=== PATIENT | male | born 1965 | race Caucasian/White ===

== ENCOUNTER → 2024-04-26 07:01 | Outpatient (REF) | payer BC, SELFPAY | LOC: MRI 3T 07:01 | PROVIDERS: ATTENDING PHYSICIAN Orthopaedic Surgery Orthopaedic Trauma; FAMILY PHYSICIAN Nurse Practitioner Family | DX: S43.431A Superior glenoid labrum lesion of right shoulder, initial encounter (principal); M25.311 Other instability, right shoulder; M25.511 Pain in right shoulder | CPT/HCPCS: 73221 ==

== ENCOUNTER 2024-05-02 12:07 | Inpatient (IN) | payer BC, SELFPAY ==
[2024-05-02] VITALS (7 sets, daily range): BP systolic 110–139; BP diastolic 67–84; BMI 34.6; BMI 34.0
--- NOTE | 2024-05-02 09:14 | ED.GENMED ---
History of Present Illness
<Dennis Doran PA-C - Last Filed: 05/02/24 11:38>
General
Chief Complaint: Skin Surface Trauma
Source: patient
Time Seen by Provider: 05/02/24 09:04
Travel History
Have you had any contact with someone who has COVID-19?: No
Do you have any symptoms of coronavirus? Fever > 100 degrees, chills, cough, shortness of breath, sore throat, loss of taste or smell, muscle aches, or headache?: No
History of Present Illness
History of Present Illness:
59-year-old male presenting to the emergency department for evaluation of a left-sided facial abscess/cellulitis that began about a week ago, patient stated started as an ingrown hair but progressed to more erythema and pain. He was started on
Bactrim as well as topical Bactroban and states despite these medications symptoms have only gotten worse. Patient works for the cardiology office here and had one of the commission sales associate look at the infection and was recommended to come to the ER for
further evaluation. Patient states he does not believe he has had any fevers but states he just does not feel very well and feels as if he does have fever. Patient also notes a secondary concern of recently rupturing his right sided biceps but
states he is not here to be evaluated for this.
Past History
<Dennis Doran PA-C - Last Filed: 05/02/24 11:38>
Past History
ED Past Medical History: HTN, Hypercholesterolemia, [place] and Other (Diverticulitis, Emphysema)
ED Past Surgical History: Cardiac (Stent) and Other (Hernia repair)
Social History
Tobacco: Smoker
Alcohol: Occasional (5th Vodka)
Drug: None
Personal:
Living: alone
Employment: Employed
Review of Systems
<Dennis Doran PA-C - Last Filed: 05/02/24 11:38>
Review of Systems
All Other Systems: ROS reviewed and negative except as documented in HPI and ROS
Phy Exam
<Dennis Doran PA-C - Last Filed: 05/02/24 11:38>
Physical Exam
Physical Exam:
GENERAL: Alert , in no apparent distress but does appear quite uncomfortable
EYE: conjunctiva clear
Head/face: Normocephalic atraumatic, large left-sided buccal and maxillary cellulitis/abscess. There is a scab at the central portion. Area is significantly indurated without any surrounding fluctuance. Borders are well-demarcated, erythematous,
painful to the touch and warm. Area of erythema measures approximately 5 cm in length and 3 cm in width
NECK: Supple,
ENT: mmm.
LUNGS: no acute respiratory distress
NEUROLOGICAL: Alert and oriented
SKIN: Warm and dry, skin intact.
MUSCULOSKELETAL: well perfused.
PSYCH: Normal and appropriate interaction.
Scores
<Dennis Doran PA-C - Last Filed: 05/02/24 11:38>
Heart Failure Risk
Heart Failure Risk Score: Not Applicable
Heart Score for Chest Pain Patients
STEMI patient?: Not applicable
Withdrawal Assessment of Alcohol
Withdrawal Assessment Completed?: Not applicable
Course
<Dennis Doran PA-C - Last Filed: 05/02/24 11:38>
Orders/Labs/Results
Orders:
Orders
05/02/24 09:11
CT Facial Bones W/ Iv Contrast Urgent
Comment:
Reason For Exam: large left maxillary cellulitis/abscess
Ketorolac [Toradol] 30 mg IV NOW STA
Piperacillin/Tazo 3.375 Gram [Zosyn] 3.375 gram in 50 ml IV NOW
05/02/24 09:18
Basic Metabolic Panel Urgent
Complete Blood Count/With Diff Urgent
05/02/24 09:41
Vancomycin [Vancocin] 2,000 mg 0.9% Sodium Chloride 500 ml [Nss] 500 ml IV NOW
05/02/24 11:27
HYDROmorphone [Dilaudid] 1 mg IV NOW STA
05/02/24 11:30
ENT CONSULT Routine
Consulting Provider: Lam Alamo
Was physician already notified: Yes
05/02/24 11:31
Admit/Transfer Patient As Directed
Co-Sign Provider:
Level of Care: Inpatient admission
Assign to:: Medical/Surgical
Physician / Group: bimal vu
Diagnosis: left cheek cellulitis
Reason for Hospitalization: left cheek cellulitis
Expected length of stay greater than two midnights?: Yes
ELOS- Estimated Length of Stay in days: 2
I certify the patient meets the requirements for IP care: Yes
05/02/24 11:33
Code Status As Directed
Resuscitation Status: Full Code
05/02/24 11:45
Blood Culture Q30M
BRENDA Source: Blood/Venous
Specimen Description:
05/02/24 12:15
Blood Culture Q30M
BRENDA Source: Blood/Venous
Specimen Description:
Abnormal Lab Results
05/02/24
09:18
WBC 11.9 H 10^3/uL
(4.8-10.8)
RBC 4.54 L 10^6/uL
(4.70-6.10)
Plt Count 848 H 10^3/uL
(130-400)
Abs Immat Gran (auto) 0.1 H 10^3/uL
(0-0.05)
Absolute Neuts (auto) 9.2 H 10^3/uL
(1.4-6.5)
Absolute Monos (auto) 1.1 H 10^3/uL
(0.1-0.6)
Neutrophils % 77.0 H %
(42.2-75.2)
Lymphocytes % 10.1 L %
(20.5-51.1)
Monocytes % 9.4 H %
(1.7-9.3)
05/02/24 09:18
05/02/24 09:18
Vital Signs
Initial and Last Documented VS:
Initial Vital Signs
Temp Pulse Resp BP Pulse Ox
98.8 F 91 18 139/84 97
05/02/24 08:33 05/02/24 08:33 05/02/24 08:33 05/02/24 08:33 05/02/24 08:33
Last Documented Vital Signs
Temp Pulse Resp BP Pulse Ox
98.8 F 79 20 118/77 98
05/02/24 08:33 05/02/24 10:25 05/02/24 10:25 05/02/24 10:25 05/02/24 10:25
<Mariusz uCtler, - Last Filed: 05/02/24 09:45>
Orders/Labs/Results
Orders:
Orders
05/02/24 09:11
CT Facial Bones W/ Iv Contrast Urgent
Comment:
Reason For Exam: large left maxillary cellulitis/abscess
Ketorolac [Toradol] 30 mg IV NOW STA
Piperacillin/Tazo 3.375 Gram [Zosyn] 3.375 gram in 50 ml IV NOW
05/02/24 09:18
Basic Metabolic Panel Urgent
Complete Blood Count/With Diff Urgent
05/02/24 09:41
Vancomycin [Vancocin] 2,000 mg 0.9% Sodium Chloride 500 ml [Nss] 500 ml IV NOW
05/02/24 11:27
HYDROmorphone [Dilaudid] 1 mg IV NOW STA
05/02/24 11:30
ENT CONSULT Routine
Consulting Provider: Lam Alamo
Was physician already notified: Yes
05/02/24 11:31
Admit/Transfer Patient As Directed
Co-Sign Provider:
Level of Care: Inpatient admission
Assign to:: Medical/Surgical
Physician / Group: bimal vu
Diagnosis: left cheek cellulitis
Reason for Hospitalization: left cheek cellulitis
Expected length of stay greater than two midnights?: Yes
ELOS- Estimated Length of Stay in days: 2
I certify the patient meets the requirements for IP care: Yes
05/02/24 11:33
Code Status As Directed
Resuscitation Status: Full Code
05/02/24 11:45
Blood Culture Q30M
BRENDA Source: Blood/Venous
Specimen Description:
05/02/24 12:15
Blood Culture Q30M
BRENDA Source: Blood/Venous
Specimen Description:
Abnormal Lab Results
05/02/24
09:18
WBC 11.9 H 10^3/uL
(4.8-10.8)
RBC 4.54 L 10^6/uL
(4.70-6.10)
Plt Count 848 H 10^3/uL
(130-400)
Abs Immat Gran (auto) 0.1 H 10^3/uL
(0-0.05)
Absolute Neuts (auto) 9.2 H 10^3/uL
(1.4-6.5)
Absolute Monos (auto) 1.1 H 10^3/uL
(0.1-0.6)
Neutrophils % 77.0 H %
(42.2-75.2)
Lymphocytes % 10.1 L %
(20.5-51.1)
Monocytes % 9.4 H %
(1.7-9.3)
05/02/24 09:18
05/02/24 09:18
Vital Signs
Initial and Last Documented VS:
Initial Vital Signs
Temp Pulse Resp BP Pulse Ox
98.8 F 91 18 139/84 97
05/02/24 08:33 05/02/24 08:33 05/02/24 08:33 05/02/24 08:33 05/02/24 08:33
Last Documented Vital Signs
Temp Pulse Resp BP Pulse Ox
98.8 F 79 20 118/77 98
05/02/24 08:33 05/02/24 10:25 05/02/24 10:25 05/02/24 10:25 05/02/24 10:25
<Dennis Doran PA-C - Last Filed: 05/02/24 11:38>
MDM/Problems Addressed
Differential Diagnosis Includes:
Abscess, cellulitis, erysipelas, impetigo
MDM/Problems Addressed:
59-year-old male presenting emergency department for evaluation of left-sided facial infection. Has been on Bactrim for the last 3 days without any relief. Erythema started to extend more towards the periorbital space over the last 24 hours.
Patient with minimal relief of pain with Advil/Tylenol. Large area of erythema and induration without any fluctuance. CT ordered. Toradol ordered pain. Vancomycin and Zosyn ordered for antibiotic coverage. Anticipate admission.
<Dennis Doran PA-C - Last Filed: 05/02/24 11:38>
*Radiology
Radiology exam reviewed: radiology read reviewed
*Pulse Oximetry
Patient hypoxic: no
*Critical Care Note
Total Time (30-74mins, 75-104mins- exclusive of procedures): Not Applicable
Data Reviewed
Review of Other/Old Records Reveals: Labs and Records
Source: patient
<Dennis Doran PA-C - Last Filed: 05/02/24 11:38>
Patient Management
Discussion with other providers: Hospitalist
Escalation/DeEscalation of care consider admission/obs:
Patient CT shows a left-sided facial and periorbital cellulitis but no abscess formation noted. Hospitalist team was notified and accepts patient for continued evaluation and treatment. They can consult ENT as needed.
ED Attending Note
<Dennis Doran PA-C - Last Filed: 05/02/24 11:38>
-
Portions of this chart may have been created with voice recognition software.� Occasional wrong word or��sound alike� substitutions may have occurred due to the inherent limitations of voice recognition software.
<Mariusz Cutler DO - Last Filed: 05/02/24 09:45>
ED Attending Note
Patient seen and examined by attending physician: Yes
I performed the substantive portion of visit, reviewed & personally made and approve the management plan that is documented in note by myself or SIN.: Yes
ED Attending Note:
Seen with PA examined independently. Agree with assessment and plan patient with worsening left facial cellulitis despite Bactrim, to be using ibuprofen, will check labs, CT scan to look for any abscess or progression, patient may require
admission to the hospital and/or specialty consultation
Discharge Plan
Departure
Patient Disposition: Admit
Date of Disposition: 05/02/24
Time of Disposition: 10:38
Presentation/result/management discussed w/ accepting MD/DO: Hospitalist
Discharge Problem:
Cellulitis and abscess of face
Prescriptions:
No Action
levothyroxine 175 mcg Tablet
175 mcg PO DAILY
sulfamethoxazole-trimethoprim [Bactrim DS] 800-160 mg Tablet
1 tab PO BID
mupirocin 2 % Ointment
1 applic TOPICAL BID
cholecalciferol (vitamin D3) 10 mcg (400 unit) Tablet
10 mcg PO DAILY
creatine monohydrate 5,000 mg Powder In Packet
1 mg PO DAILY
mecobalamin (vitamin B12) [B12 Active] 1,000 mcg Tablet,Chewable
1,000 mcg PO DAILY
Referrals:
Talya Lopez CRNP [Family Provider] -
Interventions
Interventions:
*Risk Screen - Suicide Last Done: 05/02/24 08:33
*General Assessment Last Done: 05/02/24 08:33
*Neglect/Abuse Screening Last Done: 05/02/24 08:33
*ED COVID-19 Vaccine History Last Done: 05/02/24 08:33
ED-Skin Assessment Last Done: 05/02/24 09:30
Discharge Date and Time
Print Language: BANGLADESHI
[2024-05-02 09:35] LABS: % Basophils 0.8 % (0-2); % Eosinophils 2.3 % (0-6); % Immature Granulocytes 0.4 % (0-0.5); % Lymphocytes 10.1 % (20.5-51.1); % Monocytes 9.4 % (1.7-9.3); Absolute Basophils 0.1 10^3/uL (0-0.2); Absolute Eosinophils 0.3 10^3/uL (0-0.7); Absolute Immature Granulocytes 0.1 10^3/uL (0-0.05); Absolute Lymphocytes 1.2 10^3/uL (1.2-3.4); Absolute Monocytes 1.1 10^3/uL (0.1-0.6); Absolute Neutrophils 9.2 10^3/uL (1.4-6.5); Hemoglobin 13.7 g/dL (13.0-18.0); Mean Corp Hgb Conc. 35.1 g/dL (33.0-37.0); Mean Corpuscular Hgb 30.2 pg (27.0-31.0); Mean Corpuscular Volume 85.9 fL (80.0-94.0); Mean Platelet Volume 8.3 fL (7.4-10.4); Nucleated Red Blood Cells % 0 % (-); Platelet Count 848 10^3/uL (130-400); Red Blood Cell Count 4.54 10^6/uL (4.70-6.10); Red Cell Dist. Width 14.5 % (11.5-14.5); White Blood Cell Count 11.9 10^3/uL (4.8-10.8)
[2024-05-02] MEDS: TORADOL 30 MG IV (09:46)
[2024-05-02] MEDS: ZOSYN 50 IV (09:46)
[2024-05-02 09:48] LABS: Blood Urea Nitrogen 16 mg/dl (9-20); Carbon Dioxide 29 mmol/L (22-30); Chloride 104 mmol/L (98-107); Estimated Creatinine Clearance 84 ml/min; Glucose 96 mg/dl (70-99); Potassium 4.8 mmol/L (3.5-5.1); Sodium 139 mmol/L (135-145); eGFR > 60.00
[2024-05-02] MEDS: VANCOCIN 540 MG IV (10:19)
--- NOTE | 2024-05-02 11:15 | HPS.HSE ---
Family Physician
-
Family Physician: Talya Lopez
Chief Complaint
-
Worsening pain, swelling, redness of left cheek
History of Present Illness
59-year-old male with a past medical history of hypertension, hyperlipidemia, myocardial infarction status post stent, diverticulitis, and emphysema presents with worsening pain, erythema, and edema of his left cheek, now extending towards his ear
and jaw. Patient states that he had an ingrown hair on his left cheek, started noticing the redness, swelling, and pain for 5 days. He saw his PCP 3 days ago, and was prescribed Bactrim and Bactroban. He did take these medications for 3 days, and
had worsening of his symptoms despite taking the medications. He did have fever initially, which resolved. No nausea, no vomiting. Denies dysphagia. No vision changes.
Medical History
Past Medical History
Past Medical History: Reports Other
Additional Past Medical History:
Right biceps tendon tear, HTN, Hypercholesterolemia, [place] and Other (Diverticulitis, Emphysema)
Past Surgical History: Reports Other
Additional Past Surgical History:
Hernia pair
Colon resection
Cardiac stent in 2013
Social History
Tobacco: Smoker
Alcohol: Occasional
Drug: None
Family History
Family History: Not pertinent
Allergies / Home Medications
Allergies reflects when Allergies were last updated in [employer] [facility] [employer].
Home Medications with original date entered in [facility] [employer]
Allergy/Medication List:
Allergies
Allergy/AdvReac Type Severity Reaction Status Date / Time
morphine Allergy Hives Verified 05/02/24 08:36
Home Medications Table - record
�Medication �Instructions �Recorded �Confirmed
cholecalciferol (vitamin D3) 10 10 mcg PO DAILY 05/02/24 05/02/24
mcg (400 unit) tablet
creatine monohydrate 5,000 mg oral 1 mg PO DAILY 05/02/24 05/02/24
powder packet
levothyroxine 175 mcg tablet 175 mcg PO DAILY 05/02/24 05/02/24
mecobalamin (vitamin B12) 1,000 1,000 mcg PO DAILY 05/02/24 05/02/24
mcg chewable tablet (B12 Active)
mupirocin 2 % topical ointment 1 applic topical BID 05/02/24 05/02/24
sulfamethoxazole 800 1 tab PO BID 05/02/24 05/02/24
mg-trimethoprim 160 mg tablet
(Bactrim DS)
Review of Systems
-
A 12 point ROS was completed and negative except as noted: Yes
Physical Exam
Vital Signs
Vital Signs
Temp Pulse Resp BP Pulse Ox
98.8 F 79 20 118/77 98
05/02/24 08:33 05/02/24 10:25 05/02/24 10:25 05/02/24 10:25 05/02/24 10:25
Physical Exam
General: Well Developed, Well Nourished, No Apparent Distress and Obese
HEENT: NormoCephalic, Anicteric, Moist mucous membranes and Other (Punctate lesion on left cheek with surrounding erythema, edema, tenderness, spreading to the left eye and left jaw)
Respiratory: Clear
Cardiac: S1/S2
GI: Soft, Non Tender, Non Distended and Normal Bowel Sounds
Musculoskeletal: No Clubbing, No Cyanosis and No Edema
Neuro: Awake, Alert and Oriented
Psych: Calm
Laboratory Results
-
05/02/24 09:18
05/02/24 09:18
Impression/Plan
-
HPI: 59-year-old male with a past medical history of hypertension, hyperlipidemia, myocardial infarction status post stent, diverticulitis, and emphysema presents with worsening pain, erythema, and edema of his left cheek, now extending towards his
ear and jaw. Patient states that he had an ingrown hair on his left cheek, started noticing the redness, swelling, and pain for 5 days. He saw his PCP 3 days ago, and was prescribed Bactrim and Bactroban. He did take these medications for 3 days,
and had worsening of his symptoms despite taking the medications. He did have fever initially, which resolved. No nausea, no vomiting. Denies dysphagia. No vision changes.
#Left facial cellulitis
CT facial bones shows left facial and periorbital cellulitis, no abscess identified
Appreciate ENT input, status post I&D in the ED 05/02, cultures pending
Suspicious for staph
Continue Unasyn, vancomycin, follow-up on cultures
#Thrombocytosis
Reactive, trend
#Right biceps tendon tear
Follow-up with orthopedic surgery in the office
#Hypothyroidism
Continue Synthroid
#Coronary artery disease status post stent placement 2013
#History of myocardial infarction
He used to be on aspirin, Lipitor, Coreg, lisinopril�unclear why he stopped
Follow-up with his usual extension service advisor in the office
#Cigarette nicotine dependency
Smoking cessation advised
#Obesity due to excess calories
Affects all aspects of care
DVT prophylaxis�subcu Lovenox
Full code
[2024-05-02] MEDS: DILAUDID 1 MG IV (11:40)
--- NOTE | 2024-05-02 14:00 | PTCARENOTE ---
Pt arrived to rm [id number] at this time. Pt med/surg admit, AAOx3, +1 edema of left cheek with pain- see shift assessment for further detail. Oriented pt to rm, plan of care, reporting concerns, medications, etc- pt verbalized understanding. Call patrick
within reach, will monitor.
--- NOTE | 2024-05-02 14:12 | W.PN.ENT ---
Today's Communication
-
patint seen at bedside
Impression / Plan
-
left facial abscess/celulitis
typical of Staph
incision and drainage performed
cultured
will follow/consult dictated
Subjective Data
-
patient seen for left facial cellulitis/abcsess
began 1 week ago
Objective Data
-
Vital Signs
Temp Pulse Resp BP Pulse Ox
97.9 F 69 16 129/76 96
05/02/24 13:52 05/02/24 13:52 05/02/24 13:52 05/02/24 13:52 05/02/24 13:52
Lab Results
05/02/24 09:18
05/02/24 09:18
Calcium 9.0 mg/dl (8.4-10.2) 05/02/24 09:18
Physical Exam
-
multiloculated abscess left cheek
quite tender
minimal spontaneous drainage
Chest: Clear
Respiratory: Clear
Data Reviewed
-
Radiology Results: Report Reviewed and Image Reviewed
--- NOTE | 2024-05-02 14:17 | PHA.VAN.IN ---
Assessment
- Assessment
Renal Function: Unknown baseline (previous SCr 1.0 2018)
Maximum Temperature: 98.8
Minimum Temperature: 97.9
Concomitant Antimicrobials: ampicillin-sulbactam
AUC Dosing Plan
- Empiric Dosing
Initial / Loading Dose: 2000mg 05/02 10:19
Maintenance Regimen: Vanc 1000mg q12h
Estimated AUC (mcg*h/mL): 441
Estimated Peak (mcg*h/mL): 26.6
Estimated Trough (mcg/ml): 11.9
Estimated Half Life (H): 9.5
- Monitoring
No levels ordered at this time: consider in the upcoming days
Plan
- Plan
MRSA PCR screen ordered by Dr Banegas
Pharmacokinetics Vancomycin I
- -
Patient Age: 59
Patient Sex: Male
Vancomycin Day #: 1
Indication: Skin And Soft Tissue (facial SSTI)
Requesting Provider: Dr Banegas
Pertinent Antimicrobial Allergies:
no pertinent allergies
Height / Weight:
Height 5 ft 10 in
Actual Weight 107.456 kg
Pertinent Past Medical History: BMI 34
- Vital Signs / Lab Results
Temp Pulse Resp BP Pulse Ox
97.9 F 69 16 129/76 96
05/02/24 13:52 05/02/24 13:52 05/02/24 13:52 05/02/24 13:52 05/02/24 13:52
Lab Results - Hematology
05/02/24
09:18
WBC 11.9 H
Lab Results - Chemistry
05/02/24
09:18
BUN 16
Creatinine 1.2
Estimated Creat Clear 84
[2024-05-02] MEDS: ROXICODONE 10 MG PO ×3 (14:37→22:25)
[2024-05-02] MEDS: UNASYN IV ×2 (14:38→20:58)
--- NOTE | 2024-05-02 16:33 | CON.MD ---
Consultation - Medical
-
Chief complaint: left facial cellulitis/abscess
History of present illness: This patient is a 59-year-old gentleman who noticed an ingrown hair in his left cheek about a week ago. He was able to extract that hair with a tweezer. Several days later he noted significant swelling of the left cheek
and this has worsened. It worsened quite a bit overnight and he presented with some pus draining from the wound and quite a bit of tenderness that extended upward to his lower eyelid. The patient has no difficulty with his vision. He has not had
similar problems in the past. I was asked to see this patient regarding his infection. He was thought to have cellulitis/abscess. The patient was given Bactrim orally but did not really get a chance to take the medication.
Past medical history:
Allergies: Morphine causes hives
Home medications: Cholecalciferol 10 mcg p.o. daily
Creatine monohydrate 1 mg p.o. daily
Levothyroxine 170 mcg p.o. daily
mecobalamin 1000 mcg p.o. daily
Mupirocin 1 application twice daily
Bactrim DS 1 p.o. twice daily
Chronic illnesses: Cellulitis and abscess of face, coronary atherosclerosis of coronary artery, hyperlipidemia, essential hypertension, active smoker, hypothyroidism, acute some endocardial infarction,
Hospitalizations: The patient is currently hospitalized for an infection of the left cheek.
Family history: Asked and is noncontributory for this problem
Social history: The patient is an active smoker
Review of systems: Positive left cheek pain, positive left cheek tenderness, positive left cheek tenderness, positive drainage left cheek wound, negative for chest pain, negative for respiratory distress
Physical examination:
Head: Atraumatic and normocephalic
Eyes: Extraocular movements are intact, pupils are equal and reactive to light and accommodation, there is minor swelling and redness of his lower eyelid on the left side
Nose: Clear without infection
Mouth: Clear without mucosal abnormality, the patient has evidence of bruxism and tongue thrust with bite woodward on his buccal mucosa and pressure woodward on his tongue.
Ears: Clear without infection
Neck: Supple without adenopathy or tenderness
Face: The patient has left facial swelling and tenderness with a scab and some purulent drainage
Cranial nerves: 2 through 12 are intact
Voice: Normal volume and tone
Thyroid gland: Normal to palpation
Salivary glands: Normal to palpation
Procedure: Incision and drainage of left cheek abscess
The left cheek skin surrounding the area of swelling and a scab was injected with 1% lidocaine with 1-100,000 epinephrine. Approximately 3 cc of this was used. After waiting for anesthesia and hemostasis an 11 blade was used to incise the area and
purulent material was evacuated. This was cultured and sent to the lab.
Impression: This 59-year-old gentleman has left cheek swelling and tenderness. He has what appears to be an abscess/cellulitis. It appears to be a multiloculated type infection and is most consistent with Staphylococcus. He is being placed on
vancomycin and Zosyn and that should be a good combination for this. We will follow the patient. Await culture results.
--- NOTE | 2024-05-02 16:45 | PTCARENOTE ---
Pt's Vanco MRSA PCR positive for MRSA. Made Dr. Erin Banegas aware. Placed pt on Contact Precautions and provided education to pt on isolation.
[2024-05-02] MEDS: VANCOCIN 200 IV (17:34)
[2024-05-02] MEDS: MIRALAX PO (17:51)
--- NOTE | 2024-05-02 19:31 | PTCARENOTE ---
Provided report to Ashley on . Pt transferred to rm [id number] with belongings.
[2024-05-03] MEDS: UNASYN IV ×4 (02:55→19:19)
[2024-05-03] MEDS: ROXICODONE 10 MG PO ×5 (03:05→22:23)
[2024-05-03] MEDS: SYNTHROID 175 MCG PO (06:24)
[2024-05-03] MEDS: VANCOCIN 200 IV ×2 (06:25→17:42)
[2024-05-03 07:30] VITALS: BP 105/75
[2024-05-03 08:20] LABS: % Basophils 0.7 % (0-2); % Immature Granulocytes 0.4 % (0-0.5); % Lymphocytes 13.9 % (20.5-51.1); % Monocytes 10.7 % (1.7-9.3); % Neutrophils 71.3 % (42.2-75.2); Absolute Basophils 0.1 10^3/uL (0-0.2); Absolute Eosinophils 0.3 10^3/uL (0-0.7); Absolute Lymphocytes 1.5 10^3/uL (1.2-3.4); Absolute Monocytes 1.2 10^3/uL (0.1-0.6); Absolute Neutrophils 7.7 10^3/uL (1.4-6.5); Hematocrit 37.4 % (39.0-52.0); Hemoglobin 12.5 g/dL (13.0-18.0); Mean Corp Hgb Conc. 33.4 g/dL (33.0-37.0); Mean Corpuscular Hgb 29.6 pg (27.0-31.0); Mean Corpuscular Volume 88.6 fL (80.0-94.0); Mean Platelet Volume 8.6 fL (7.4-10.4); Nucleated Red Blood Cells % 0 % (-); Platelet Count 779 10^3/uL (130-400); Red Blood Cell Count 4.22 10^6/uL (4.70-6.10); Red Cell Dist. Width 14.6 % (11.5-14.5); White Blood Cell Count 10.7 10^3/uL (4.8-10.8)
--- NOTE | 2024-05-03 08:21 | W.PN.HOSP.TC ---
Today's Communication/Plan
-
see bold
Assessment / Plan
Assessment / Plan
HPI: HPI: 59-year-old male with a past medical history of hypertension, hyperlipidemia, myocardial infarction status post stent, diverticulitis, and emphysema presents with worsening pain, erythema, and edema of his left cheek, now extending towards
his ear and jaw. Patient states that he had an ingrown hair on his left cheek, started noticing the redness, swelling, and pain for 5 days. He saw his PCP 3 days ago, and was prescribed Bactrim and Bactroban. He did take these medications for 3
days, and had worsening of his symptoms despite taking the medications. He did have fever initially, which resolved. No nausea, no vomiting. Denies dysphagia. No vision changes.
#Left facial cellulitis
CT facial bones shows left facial and periorbital cellulitis, no abscess identified
Appreciate ENT input, status post I&D in the ED 05/02, cultures pending
Suspicious for staph
Continue Unasyn, vancomycin, follow-up on cultures
Continue oxycodone, add IV steroids, IV Toradol, IV Dilaudid as needed
#Thrombocytosis
Reactive, trend
#Right biceps tendon tear
Follow-up with orthopedic surgery in the office
#Hypothyroidism
Continue Synthroid
#Coronary artery disease status post stent placement 2013
#History of myocardial infarction
He used to be on aspirin, Lipitor, Coreg, lisinopril�states he has stopped these medications 10 years ago and he has been fine
He is willing to resume aspirin 81 mg daily - ordered here
Follow-up with his usual vertica architect in the office
#Cigarette nicotine dependency
Smoking cessation advised
#Obesity due to excess calories
Affects all aspects of care
DVT prophylaxis�subcu Lovenox
Full code
Total time spent to see the patient on the floor, examine the patient, review data and lab results, discuss treatment plan with patient, nursing staff around 50 minutes.
Physical Exam
General: Well Developed, Well Nourished, No Apparent Distress and Obese
HEENT: NormoCephalic, Anicteric, Moist mucous membranes and Other (Punctate lesion on left cheek with surrounding erythema, edema, tenderness, spreading to the left eye and left jaw)
Respiratory: Clear
Cardiac: S1/S2
GI: Soft, Non Tender, Non Distended and Normal Bowel Sounds
Musculoskeletal: No Clubbing, No Cyanosis and No Edema
Neuro: Awake, Alert and Oriented
Psych: Calm
Anticipated Discharge: 24 - 48 hours
Subjective/Interval History
-
Date of Service: May 03, 2024
Patient reports the pain, swelling, and erythema on the left side of his face is worse today. He had low-grade fever of 100.2 last night. No vomiting.
Objective Data
-
Labs:
Laboratory Results
05/03/24
06:58
WBC Pending
Hgb Pending
Hct Pending
Plt Count Pending
Sodium Pending
Potassium Pending
Chloride Pending
Carbon Dioxide Pending
BUN Pending
Creatinine Pending
Glucose Pending
Calcium Pending
Vital Signs:
Vital Signs
Temp Pulse Resp BP Pulse Ox
99.6 F 80 18 105/75 94
05/03/24 07:30 05/03/24 07:30 05/03/24 07:30 05/03/24 07:30 05/03/24 07:30
I&O
05/02/24 05/03/24 05/04/24
06:59 06:59 06:59
Intake Total 1240 / 1240
Balance 1240 / 1240
[2024-05-03] MEDS: VITAMIN D3 (cholecalciferol) 10 MCG PO (08:29)
--- NOTE | 2024-05-03 08:39 | W.PN.ENT ---
Today's Communication
-
seen at bedside
Impression / Plan
-
left facial abscess/celulitis
typical of Staph
wound gram stain shows gram positive cocci- likely staph?
Subjective Data
-
pt feels a little worse today, swelling mildly increased
having pain/tenderness
Objective Data
-
Vital Signs
Temp Pulse Resp BP Pulse Ox
99.6 F 80 18 105/75 94
05/03/24 07:30 05/03/24 07:30 05/03/24 07:30 05/03/24 07:30 05/03/24 07:30
Intake & Output
05/02/24 05/03/24 05/04/24
06:59 06:59 06:59
Intake:
Oral fluids 480 / 480
IV piggybacks 320 / 320
Blood products 440 / 440
Other:
Number of approximated MODERATE 2
amounts of urine
Number of approximated LARGE 2
amounts of urine
Lab Results
05/03/24 06:58
Calcium 9.0 mg/dl (8.4-10.2) 05/02/24 09:18
Physical Exam
-
left cheek swollen and indurated
slightly more swelling today
very tender with small amount drainage
Chest: Clear
Respiratory: Clear
Data Reviewed
-
Radiology Results: Report Reviewed
[2024-05-03 09:01] LABS: Blood Urea Nitrogen 18 mg/dl (9-20); Calcium 8.5 mg/dl (8.4-10.2); Carbon Dioxide 26 mmol/L (22-30); Chloride 100 mmol/L (98-107); Estimated Creatinine Clearance 77 ml/min; Glucose 96 mg/dl (70-99); Potassium 4.9 mmol/L (3.5-5.1); Sodium 136 mmol/L (135-145); eGFR > 60.00
[2024-05-03] MEDS: LOW STRENGTH ASPIRIN 81 MG PO (10:30)
[2024-05-03] MEDS: VITAMIN B-12 1000 MCG PO (10:30)
[2024-05-03] MEDS: TORADOL 30 MG IV ×3 (10:30→22:25)
[2024-05-03] MEDS: DECADRON 10 MG IV (12:23)
--- NOTE | 2024-05-03 12:33 | PHA.VAN.FU ---
Vancomycin Assessment / Plan
- Assessment
Renal Function: Stable (SCr 1.2->1.3)
WBC's are: WNL
In the past 24 hrs, patient has been: Afebrile
Concomitant Antimicrobials: ampicillin-sulbactam
- Dosing Plan
Continue: vanc 1000mg q12h
- Monitoring Plan
No level(s) ordered at this time: consider levels in the upcoming days
- Follow Up
Pharmacy will continue to follow.
Vancomycin Follow UP
- -
Patient Age: 59
Patient Sex: Male
Vancomycin Day #: 2
Indication: Skin And Soft Tissue (facial SSTI)
Requesting Provider: Dr Banegas
Pertinent Antimicrobial Allergies:
no pertinent allergies
Height / Weight:
Height 5 ft 10 in
Actual Weight 107.456 kg
Pertinent Past Medical History: BMI 34
- Vital Signs / Lab Results
Temp Pulse Resp BP Pulse Ox
99.6 F 80 18 105/75 94
05/03/24 07:30 05/03/24 07:30 05/03/24 07:30 05/03/24 07:30 05/03/24 07:30
Lab Results - Hematology
05/02/24 05/03/24
09:18 06:58
WBC 11.9 H 10.7
Lab Results - Chemistry
05/02/24 05/03/24
09:18 06:58
BUN 16 18
Creatinine 1.2 1.3
Estimated Creat Clear 84 77
Microbiology Results
05/02/24 11:48 Blood Culture - Preliminary
Blood/Venous No Growth in 24 hours- Final report to follow
05/02/24 11:48 Blood Culture - Preliminary
Blood/Venous No Growth in 24 hours- Final report to follow
05/02/24 14:29 Anaerobic Culture - Preliminary
Abscess Culture pending. Anaerobic cultures are examined after 3
days incubation. Additional information to follow.
05/02/24 13:43 Wound Culture - Preliminary
Abscess Staphylococcus aureus
Gram Stain - Preliminary
05/02/24 14:29 Nasal Screen MRSA (PCR) - Final
Nose Staph aureus MRSA
[2024-05-03 15:15] VITALS: BP 115/71
--- NOTE | 2024-05-03 15:24 | CM ---
Patient seen bedside.
OIA completed.
Patient lives alone in a 2 story home with 3 steps to enter.
patient independent prior to admission without AD.
Patient works and drives.
PCP: Dr Lopez
Pharmacy:[facility]
Plan: Home no needs anticipated.
[2024-05-03] MEDS: DILAUDID 1 MG IV ×2 (16:05→20:18)
[2024-05-03] MEDS: MIRALAX 17 GRAMS PO (17:42)
[2024-05-03] MEDS: DECADRON IV ×2 (22:23→22:29)
--- NOTE | 2024-05-03 22:30 | PTCARENOTE ---
Patient refusing PM dose of steroid, stating that initial dose made him feel very restless and like 'jumping out of his skin.' Pt educated on plan of care and states he is willing to take steroid in the morning.
[2024-05-03 23:00] VITALS: BP 115/72
[2024-05-04] MEDS: UNASYN IV ×3 (02:02→14:10)
[2024-05-04] MEDS: SYNTHROID 175 MCG PO (06:15)
[2024-05-04] MEDS: TORADOL 30 MG IV ×4 (06:16→23:08)
[2024-05-04] MEDS: VANCOCIN 200 IV ×2 (06:16→17:34)
[2024-05-04 08:17] LABS: % Basophils 0.3 % (0-2); % Eosinophils 0.1 % (0-6); % Immature Granulocytes 0.8 % (0-0.5); % Lymphocytes 6.9 % (20.5-51.1); % Monocytes 6.5 % (1.7-9.3); % Neutrophils 85.4 % (42.2-75.2); Absolute Basophils 0.1 10^3/uL (0-0.2); Absolute Immature Granulocytes 0.1 10^3/uL (0-0.05); Absolute Lymphocytes 1.2 10^3/uL (1.2-3.4); Absolute Monocytes 1.1 10^3/uL (0.1-0.6); Absolute Neutrophils 14.4 10^3/uL (1.4-6.5); Hematocrit 37.3 % (39.0-52.0); Mean Corp Hgb Conc. 34.9 g/dL (33.0-37.0); Mean Corpuscular Hgb 29.8 pg (27.0-31.0); Mean Corpuscular Volume 85.6 fL (80.0-94.0); Mean Platelet Volume 8.6 fL (7.4-10.4); Nucleated Red Blood Cells % 0 % (-); Platelet Count 899 10^3/uL (130-400); Red Blood Cell Count 4.36 10^6/uL (4.70-6.10); White Blood Cell Count 16.9 10^3/uL (4.8-10.8)
[2024-05-04 08:21] VITALS: BP 114/70
[2024-05-04 08:27] LABS: Blood Urea Nitrogen 19 mg/dl (9-20); Calcium 8.8 mg/dl (8.4-10.2); Carbon Dioxide 27 mmol/L (22-30); Chloride 103 mmol/L (98-107); Estimated Creatinine Clearance 91 ml/min; Glucose 154 mg/dl (70-99); Potassium 4.7 mmol/L (3.5-5.1); Sodium 137 mmol/L (135-145); eGFR > 60.00
[2024-05-04] MEDS: VITAMIN B-12 1000 MCG PO (08:36)
[2024-05-04] MEDS: LOW STRENGTH ASPIRIN 81 MG PO (08:36)
[2024-05-04] MEDS: VITAMIN D3 (cholecalciferol) 10 MCG PO (08:36)
[2024-05-04] MEDS: ROXICODONE 10 MG PO ×4 (08:36→21:54)
--- NOTE | 2024-05-04 09:03 | W.PN.HOSP.TC ---
Today's Communication/Plan
-
Discharge tomorrow
Assessment / Plan
Assessment / Plan
HPI: HPI: 59-year-old male with a past medical history of hypertension, hyperlipidemia, myocardial infarction status post stent, diverticulitis, and emphysema presents with worsening pain, erythema, and edema of his left cheek, now extending towards
his ear and jaw. Patient states that he had an ingrown hair on his left cheek, started noticing the redness, swelling, and pain for 5 days. He saw his PCP 3 days ago, and was prescribed Bactrim and Bactroban. He did take these medications for 3
days, and had worsening of his symptoms despite taking the medications. He did have fever initially, which resolved. No nausea, no vomiting. Denies dysphagia. No vision changes.
#Left facial cellulitis
CT facial bones shows left facial and periorbital cellulitis, no abscess identified
Appreciate ENT input, status post I&D in the ED 05/02, cultures growing MRSA, sensitive to Bactrim, doxycycline, and vancomycin
Continue vancomycin, plan for discharge on Bactrim tomorrow to complete a 14-day course
Status post 3 courses of IV steroids
Continue oxycodone, IV Toradol, IV Dilaudid as needed
#Thrombocytosis
Reactive, trend
#Right biceps tendon tear
Follow-up with orthopedic surgery in the office
#Hypothyroidism
Continue Synthroid
#Coronary artery disease status post stent placement 2013
#History of myocardial infarction
He used to be on aspirin, Lipitor, Coreg, lisinopril�states he self stopped these medications 10 years ago
He is willing to resume aspirin 81 mg daily - ordered here
Follow-up with his usual pouako kura kaupapa maori in the office
#Cigarette nicotine dependency
Smoking cessation advised
#Obesity due to excess calories
Affects all aspects of care
DVT prophylaxis�subcu Lovenox
Full code
Physical Exam
General: Well Developed, Well Nourished, No Apparent Distress and Obese
HEENT: NormoCephalic, Anicteric, Moist mucous membranes and Other (Punctate lesion on left cheek with surrounding erythema, edema, tenderness, spreading to the left eye and left jaw)
Respiratory: Clear
Cardiac: S1/S2
GI: Soft, Non Tender, Non Distended and Normal Bowel Sounds
Musculoskeletal: No Clubbing, No Cyanosis and No Edema
Neuro: Awake, Alert and Oriented
Psych: Calm
Anticipated Discharge: Within 24 hours
Subjective/Interval History
-
Date of Service: May 04, 2024
Patient reports improvement in pain, erythema, and edema of his left face. His drooling has stopped. No fever, no vomiting.
Objective Data
-
Labs:
Laboratory Results
05/04/24
07:56
WBC 16.9 H
Hgb 13.0
Hct 37.3 L
Plt Count 899 H
Sodium 137
Potassium 4.7
Chloride 103
Carbon Dioxide 27
BUN 19
Creatinine 1.1
Glucose 154 H
Calcium 8.8
Vital Signs:
Vital Signs
Temp Pulse Resp BP Pulse Ox
97.4 F 74 16 114/70 96
05/04/24 08:21 05/04/24 08:21 05/04/24 08:21 05/04/24 08:21 05/04/24 08:21
I&O
05/03/24 05/04/24 05/05/24
06:59 06:59 06:59
Intake Total 1240 / 1240 690 / 690
Balance 1240 / 1240 690 / 690
--- NOTE | 2024-05-04 11:11 | W.PN.ENT ---
Today's Communication
-
pt seen at bedside
Impression / Plan
-
left facial abscess/celulitis improving
Culture shows MRSA sensitive to Vancomycin and TMP/SMZ
?home tomorrow on TMP/SMZ
Subjective Data
-
patient feels somewhat better this am
less pain
some spasms of pain in let jaw possibly due to bruxism
Objective Data
-
Vital Signs
Temp Pulse Resp BP Pulse Ox
97.4 F 74 16 114/70 96
05/04/24 08:21 05/04/24 08:21 05/04/24 08:21 05/04/24 08:21 05/04/24 08:21
Intake & Output
05/03/24 05/04/24 05/05/24
06:59 06:59 06:59
Intake:
Oral fluids 480 / 480 250 / 250
IV piggybacks 320 / 320 440 / 440
Blood products 440 / 440
Other:
Number of approximated MODERATE 2 3
amounts of urine
Number of approximated LARGE 2
amounts of urine
Lab Results
05/04/24 07:56
05/04/24 07:56
Calcium 8.8 mg/dl (8.4-10.2) 05/04/24 07:56
Magnesium 2.0 mg/dl (1.6-2.3) 05/03/24 06:58
Physical Exam
-
swelling decreased
less drainage
WBC increase probably due to decadron
Chest: Clear
Respiratory: Clear
Data Reviewed
-
Radiology Results: Report Reviewed
Micro Results: Report Reviewed
--- NOTE | 2024-05-04 11:14 | W.PN.ENT ---
Today's Communication
-
pt seen at bedside
Impression / Plan
-
left facial abscess/celulitis improving
Culture shows MRSA sensitive to Vancomycin and TMP/SMZ
?home tomorrow on TMP/SMZ
Subjective Data
-
patient feels somewhat better this am
less pain
some spasms of pain in let jaw possibly due to bruxism
Objective Data
-
Vital Signs
Temp Pulse Resp BP Pulse Ox
97.4 F 74 16 114/70 96
05/04/24 08:21 05/04/24 08:21 05/04/24 08:21 05/04/24 08:21 05/04/24 08:21
Intake & Output
05/03/24 05/04/24 05/05/24
06:59 06:59 06:59
Intake:
Oral fluids 480 / 480 250 / 250
IV piggybacks 320 / 320 440 / 440
Blood products 440 / 440
Other:
Number of approximated MODERATE 2 3
amounts of urine
Number of approximated LARGE 2
amounts of urine
Lab Results
05/04/24 07:56
05/04/24 07:56
Calcium 8.8 mg/dl (8.4-10.2) 05/04/24 07:56
Magnesium 2.0 mg/dl (1.6-2.3) 05/03/24 06:58
Physical Exam
-
Chest: Clear
Respiratory: Clear
--- NOTE | 2024-05-04 11:30 | PTCARENOTE ---
Educated patient re disconnecting his own IV when his IV Abx are completed. Instructed the patient to ring for assistance. Patient indicated understanding.
[2024-05-04] MEDS: DECADRON 10 MG IV (12:00)
[2024-05-04] MEDS: DILAUDID 1 MG IV ×2 (12:01→20:41)
--- NOTE | 2024-05-04 12:44 | PHA.VAN.FU ---
Vancomycin Assessment / Plan
- Assessment
Renal Function: Stable
WBC's are: Trending Up (on steroids)
In the past 24 hrs, patient has been: Afebrile
Concomitant Antimicrobials: ampicillin-sulbactam
- Dosing Plan
Continue: vanc 1000mg q12
- Monitoring Plan
No level(s) ordered at this time: consider in the upcoming days
- Follow Up
Pharmacy will continue to follow.
Vancomycin Follow UP
- -
Patient Age: 59
Patient Sex: Male
Vancomycin Day #: 3
Indication: Skin And Soft Tissue (facial SSTI)
Requesting Provider: Dr Banegas
Pertinent Antimicrobial Allergies:
no pertinent allergies
Height / Weight:
Height 5 ft 10 in
Actual Weight 107.456 kg
Pertinent Past Medical History: BMI 34
- Vital Signs / Lab Results
Temp Pulse Resp BP Pulse Ox
97.4 F 74 16 114/70 96
05/04/24 08:21 05/04/24 08:21 05/04/24 08:21 05/04/24 08:21 05/04/24 08:21
Lab Results - Hematology
05/02/24 05/03/24 05/04/24
09:18 06:58 07:56
WBC 11.9 H 10.7 16.9 H
Lab Results - Chemistry
05/02/24 05/03/24 05/04/24
09:18 06:58 07:56
BUN 16 18 19
Creatinine 1.2 1.3 1.1
Estimated Creat Clear 84 77 91
Microbiology Results
05/02/24 11:48 Blood Culture - Preliminary
Blood/Venous No Growth in 48 hours- Final report to follow
05/02/24 11:48 Blood Culture - Preliminary
Blood/Venous No Growth in 48 hours- Final report to follow
05/02/24 13:43 Wound Culture - Preliminary
Abscess Staph aureus MRSA
Gram Stain - Preliminary
05/02/24 14:29 Anaerobic Culture - Preliminary
Abscess Culture pending. Anaerobic cultures are examined after 3
days incubation. Additional information to follow.
05/02/24 14:29 Nasal Screen MRSA (PCR) - Final
Nose Staph aureus MRSA
[2024-05-04 15:21] VITALS: BP 118/75
[2024-05-04] MEDS: MIRALAX 17 GRAMS PO (17:34)
[2024-05-04 23:04] VITALS: BP 124/73
[2024-05-05] MEDS: VANCOCIN 200 IV (05:17)
[2024-05-05] MEDS: SYNTHROID 175 MCG PO (05:17)
[2024-05-05] MEDS: TORADOL 30 MG IV (05:17)
[2024-05-05] MEDS: DILAUDID 1 MG IV (06:21)
[2024-05-05 07:05] VITALS: BP 124/78
[2024-05-05] MEDS: LOW STRENGTH ASPIRIN 81 MG PO (07:17)
[2024-05-05] MEDS: VITAMIN D3 (cholecalciferol) 10 MCG PO (07:17)
[2024-05-05] MEDS: VITAMIN B-12 1000 MCG PO (07:17)
[2024-05-05] MEDS: ROXICODONE 10 MG PO (07:18)
--- NOTE | 2024-05-05 09:11 | W.PN.HOSP.TC ---
Today's Communication/Plan
-
Medically stable for discharge today
Assessment / Plan
Assessment / Plan
HPI: HPI: 59-year-old male with a past medical history of hypertension, hyperlipidemia, myocardial infarction status post stent, diverticulitis, and emphysema presents with worsening pain, erythema, and edema of his left cheek, now extending towards
his ear and jaw. Patient states that he had an ingrown hair on his left cheek, started noticing the redness, swelling, and pain for 5 days. He saw his PCP 3 days ago, and was prescribed Bactrim and Bactroban. He did take these medications for 3
days, and had worsening of his symptoms despite taking the medications. He did have fever initially, which resolved. No nausea, no vomiting. Denies dysphagia. No vision changes.
#Left facial cellulitis
CT facial bones shows left facial and periorbital cellulitis, no abscess identified
Appreciate ENT input, status post I&D in the ED 05/02, cultures growing MRSA, sensitive to Bactrim, doxycycline, and vancomycin
Resolving on IV vancomycin, plan for discharge on Bactrim for 7 more days. He has this at home already. Continue oxycodone, ibuprofen.
Status post 3 courses of IV steroids
Follow-up with his PCP in 1 week
#Thrombocytosis
Reactive, trend
#Right biceps tendon tear
Follow-up with orthopedic surgery in the office
#Hypothyroidism
Continue Synthroid
#Coronary artery disease status post stent placement 2013
#History of myocardial infarction
He used to be on aspirin, Lipitor, Coreg, lisinopril�states he self stopped these medications 10 years ago
He is willing to resume aspirin 81 mg daily - ordered here
Follow-up with his usual bridge maintainer in the office
#Cigarette nicotine dependency
Smoking cessation advised
#Obesity due to excess calories
Affects all aspects of care
DVT prophylaxis�subcu Lovenox
Full code
Physical Exam
General: Well Developed, Well Nourished, No Apparent Distress and Obese
HEENT: NormoCephalic, Anicteric, Moist mucous membranes and Other (Punctate lesion on left cheek with surrounding erythema, edema, tenderness, spreading to the left eye and left jaw)
Respiratory: Clear
Cardiac: S1/S2
GI: Soft, Non Tender, Non Distended and Normal Bowel Sounds
Musculoskeletal: No Clubbing, No Cyanosis and No Edema
Neuro: Awake, Alert and Oriented
Psych: Calm
Anticipated Discharge: Today
Subjective/Interval History
-
Date of Service: May 05, 2024
Patient reports continued improvement in pain, swelling, and redness of left side of his face. No fever, no vomiting.
Objective Data
-
Labs:
Laboratory Results
05/05/24
08:34
Sodium Pending
Potassium Pending
Chloride Pending
Carbon Dioxide Pending
BUN Pending
Creatinine Pending
Glucose Pending
Calcium Pending
Vital Signs:
Vital Signs
Temp Pulse Resp BP Pulse Ox
98.0 F 72 16 124/78 95
05/05/24 07:05 05/05/24 07:05 05/05/24 07:05 05/05/24 07:05 05/05/24 07:05
I&O
05/04/24 05/05/24 05/06/24
06:59 06:59 06:59
Intake Total 690 / 690 1080 / 1080
Balance 690 / 690 1080 / 1080
[2024-05-05 09:56] LABS: Blood Urea Nitrogen 21 mg/dl (9-20); Calcium 8.8 mg/dl (8.4-10.2); Carbon Dioxide 27 mmol/L (22-30); Chloride 102 mmol/L (98-107); Estimated Creatinine Clearance 100 ml/min; Glucose 142 mg/dl (70-99); Potassium 4.7 mmol/L (3.5-5.1); Sodium 137 mmol/L (135-145); eGFR > 60.00
--- NOTE | 2024-05-05 10:36 | W.DCSUMMARY ---
Discharge Summary
Discharge Data
Date of Admission: 05/02/24
Date of Discharge: 05/05/24
-
Pending Results: No
Hospital Course
Discharge diagnosis:
Severe left facial cellulitis
Thrombocytosis
Right biceps tendon tear
Hypothyroidism
Coronary artery disease status post stent placement 2013
History of myocardial infarction
Cigarette nicotine dependency
Obesity due to excess calories
Consults: ENT
CT facial bones:
Findings as above most consistent with left facial and periorbital cellulitis. No discrete abscess formation or drainable collection identified. No abnormalities are identified within the left orbit.
Hospital course:
59-year-old male with a past medical history of hypothyroidism, coronary artery disease, [place], cigarette nicotine dependency, and obesity was admitted for severe left facial cellulitis. Patient reports that he had an ingrown hair on his left cheek,
then started having erythema, edema, pain. He was prescribed Bactrim by his PCP, which he took for 2 days, with no improvement. Patient was seen in conjunction with ENT. Patient underwent I&D in the ED. He was treated with IV vancomycin and
Unasyn. His swelling and pain continued. He then received 3 doses of IV dexamethasone. Cultures grew out MRSA, sensitive to vancomycin, Bactrim. Unasyn was discontinued.
Patient reports self stopping his heart medications 10 years ago. He is agreeable to resuming aspirin 81 mg daily. It is recommended that he follow-up with his usual media marketing coordinator to discuss the other medications.
After several days, his pain, swelling, and erythema improved. He is medically stable for discharge. He can continue the Bactrim that he has, he has 7.5 days left. He has been instructed to follow-up with his primary care doctor in 1 week.
Disposition: Home self-care
Discharge planning: Required 34 minutes
Discharge Plan
-
Patient Disposition: Home (Routine Discharge)
Discharge Diagnosis/Procedures: Extensive left facial cellulitis
Condition: Fair
Diet: Low Fat and Low Cholesterol
Activity: As tolerated
Driving Restrictions: As prior to admission
Activity Restrictions/Additional Instructions:
Please drink plenty of fluids.
Finish taking the Bactrim that you have, first dose tonight.
Please follow-up with your PCP in 1 week.
Referrals:
Talya Lopez CRNP [Family Provider] - in one week
Prescriptions:
New
aspirin [Children's Aspirin] 81 mg Tablet,Chewable
81 mg PO DAILY Qty: 30 0RF
oxycodone 10 mg Tablet
10 mg PO QIDPRN PRN (Reason: Pain) 7 Days Qty: 30 0RF
polyethylene glycol 3350 17 gram/dose powder
17 g PO DAILY Qty: 510 0RF
ibuprofen 800 mg tablet
800 mg PO TID 7 Days Qty: 21 0RF
Continued
levothyroxine 175 mcg Tablet
175 mcg PO DAILY
sulfamethoxazole-trimethoprim [Bactrim DS] 800-160 mg Tablet
1 tab PO BID
mupirocin 2 % Ointment
1 applic TOPICAL BID
cholecalciferol (vitamin D3) 10 mcg (400 unit) Tablet
10 mcg PO DAILY
creatine monohydrate 5,000 mg Powder In Packet
1 mg PO DAILY
mecobalamin (vitamin B12) [B12 Active] 1,000 mcg Tablet,Chewable
1,000 mcg PO DAILY
Discharge Orders:
Discharge Patient (As Directed); Ordered 05/05/24
Ordered By: Jim Banegas
Discharge Date and Time
Discharge Date/Time: 05/05/24 11:00
Print Language: GUATEMALAN
== END 2024-05-05 11:00 | disposition home or self-care (01) | DRG 603 ==
LOC: 4 WEST ACU 12:07
PROVIDERS: Physician Assistant Medical; ADMITTING PHYSICIAN Family Medicine; CONSULT PHYSICIAN Otolaryngology Facial Plastic Surgery; EMERGENCY PHYSICIAN Emergency Medicine; FAMILY PHYSICIAN Nurse Practitioner Family
PROC: 0H91XZZ Drainage of Face Skin, External Approach (ICD-10-PCS; 2024-05-02)
DX: L02.01 Cutaneous abscess of face (principal); L03.211 Cellulitis of face; L03.213 Periorbital cellulitis; F17.200 Nicotine dependence, unspecified, uncomplicated; D75.839 Thrombocytosis, unspecified; S46.211A Strain of muscle, fascia and tendon of other parts of biceps, right arm, initial encounter; E03.9 Hypothyroidism, unspecified; I25.10 Atherosclerotic heart disease of native coronary artery without angina pectoris; Z95.5 Presence of coronary angioplasty implant and graft; I25.2 Old myocardial infarction; B95.62 Methicillin resistant Staphylococcus aureus infection as the cause of diseases classified elsewhere; E66.09 Other obesity due to excess calories; Z68.34 Body mass index [BMI] 34.0-34.9, adult
CPT/HCPCS: 70487; 80048; 83735; 85025; 87040; 87070; 87075; 87076; 87147; 87186; 87205; 87641; 96365; 96366; 96367; 96375; 99285; Q9967

== ENCOUNTER 2024-05-26 06:28 | Day surgery (SDC) | payer BC, SELFPAY ==
--- NOTE | 2024-05-22 12:53 | PTCARENOTE ---
+MRSA 05/02.24, SDS, OR, PACU notified. MD made aware, no new orders.
[2024-05-26] VITALS (11 sets, daily range): BP systolic 90–136; BP diastolic 68–91; BMI 33.8
[2024-05-26] MEDS: NORMOSOL-R 1000 IV (07:30)
--- NOTE | 2024-05-26 07:33 | SUR.OPER ---
Dr. Moralez aware that patient does not have anyone to stay with him overnight after surgery. ok with it. Will monitor patient.
[2024-05-26] MEDS: DILAUDID 0.25 MG IV ×2 (10:57→11:13)
[2024-05-26] MEDS: ROXICODONE 5 MG PO (12:34)
== END 2024-05-26 12:53 | disposition home or self-care (01) ==
LOC: SDS 06:28
PROVIDERS: ATTENDING PHYSICIAN Orthopaedic Surgery Hand Surgery
DX: M25.811 Other specified joint disorders, right shoulder (principal); M75.41 Impingement syndrome of right shoulder; S46.211A Strain of muscle, fascia and tendon of other parts of biceps, right arm, initial encounter; X50.0XXA Overexertion from strenuous movement or load, initial encounter; Y93.B9 Activity, other involving muscle strengthening exercises; S43.431A Superior glenoid labrum lesion of right shoulder, initial encounter; M19.011 Primary osteoarthritis, right shoulder
CPT/HCPCS: 29828; 29823; 29826